=== PATIENT | female | born 1970 | race Caucasian/White ===

== ENCOUNTER → 2016-09-24 | Outpatient (CLI) | payer OTHER ==
[~2016-09-24] MED LIST: ALBUTEROL17 GM INH; ALPRAZOLAM PO; BENZONATATE PO; LORTAB 2.5/5001 TAB PO; PHENERGAN25 M1 PO; PREDNISONE PO; PREDNISONE1 MG PO; PROVENTIL INH0.5 ML INH; WELLBUTRIN SR150 MG PO; XANAX0.5 MG PO; ZITHROMAX PO
--- NOTE | ~2016-09-24 | CR181 ---
[facility], [place]. [facility] A Service of [facility] & [facility] RADIOLOGY TEXT RESULTS PATIENT: MONIKA WIGGINS LOCATION: [facility] : 70 UNIT #: [id number] AGE: [address]: Emily Noel MD SEX: F ORDER DR: [id number] [address] [address] [id number] O MR#: [id number] Acc #: [id number] NAME: MONIKA WIGGINS : 1970 SEX: F STUDY DATE/TIME: 09/24/2016 12:16 UNIT: [facility] ROOM: STUDY DESCRIPTION: CR Lumbar Spine 2 or 3 Views Attending Physician: Emily Noel M.D. Referring Physician: Emily Noel M.D. Ordering Physician: Emily Noel M.D. Primary Care Physician: Emily Noel M.D. MEDICAL IMAGING REPORT This report is preliminary unless electronic signature is present. EXAM Lumbar spine series in 4 views, 09/24/2016 COMPARISON None HISTORY Low back pain for 6 months. No known injury. FINDINGS There is a degenerative dextroscoliosis but no orly or retrolisthesis. There is discogenic degenerative change and likely lower lumbar facet arthropathy as well but no fracture or acute abnormality is seen. IMPRESSION Degenerative changes without acute abnormality. Dictated by... Sean Lazcano M.D. THIS IS AN ELECTRONICALLY VERIFIED REPORT Sean Lazcano M.D. at 10/01/2016 10:35 AM AUBREY/filiberto TD: 09/25/2016 09:26 JOB #: [id number] MEDICAL IMAGING REPORT Page 1 of 1
== END | disposition home or self-care (01) ==
LOC: SRAD 12:12
DX: M54.5 Low back pain (principal); M47.896 Other spondylosis, lumbar region
CPT/HCPCS: 72100